=== PATIENT | female | born 1945 | race Caucasian/White ===

== ENCOUNTER 2016-06-26 09:41 | Day surgery (SDC) | payer MEDICARE ==
[2016-06-26] MEDS ORDERED: LIDOCAINE 2% MDV (20MG/ML) 20ML VIAL IV ONE (14:00)
[2016-06-26] MEDS ORDERED: PROPOFOL 10 MG/ML VIAL IV ONE (14:00)
[2016-06-26] MEDS ORDERED: FENTANYL PF 100MCG/2ML VIAL IV ONE (14:00)
--- NOTE | 2016-06-30 15:49 | Operative Note ---
DATE OF SURGERY: 06/26/16 OPERATION: Esophagogastroduodenoscopy with biopsy. REFERRING PHYSICIAN: Alexia Pena M.D. INDICATION: Dysphagia pointing to the lower chest region. Also chronic nausea. The patient presents at this time for further evaluation. She has had a previous Lui fundoplication years ago. ANESTHESIA: Intravenous sedation was administered by the Department of Anesthesiology and included Diprivan titrated to effect. PROCEDURE: Following informed consent from this alert individual, including a discussion of the risks and benefits of the procedure and an opportunity for the patient to ask questions, the patient was in the left lateral decubitus position. The Olympus XMF451 video endoscope was inserted into the esophagus without resistance. The proximal esophagus has a normal appearance with normal folds and distensibility. The mid and distal esophagus, likewise, were free from mucosal changes. However there was a significant amount of what appeared to be esophageal spasm noted in the lower third of the esophagus. The squamocolumnar junction was smooth and well defined. There was a small sliding- type hiatal hernia noted. The stomach was then entered. The gastric fundus and pars media had a normal appearance with normal folds and distensibility. The antrum evaluated circumferentially was free from any mucosal changes. The pylorus was widely patent. The duodenal bulb, sweep, and descending duodenum were examined in a serial fashion and were found to be normal. The endoscope was then withdrawn back into the body of the stomach. Retroflexion was accomplished following air insufflation. The proximal stomach demonstrated a gastric fundal polyps. Biopsies were taken. Also noted was a somewhat displaced fundoplication with a hiatal hernia noted from below. Biopsies of the area of the fundoplication were taken as this seemed somewhat full. After biopsying, the scope was then straightened and withdrawn back through the esophagus and removed from the patient. The patient tolerated the procedure well and was returned to the recovery area in stable condition. IMPRESSIONS: 1. Distal esophageal spasm noted. 2. Small sliding-type hiatal hernia. 3. Status post fundoplication. 4. Gastric fundal polyps; biopsies taken. 5. No gastritis or duodenitis noted. RECOMMENDATIONS: Further recommendations will be forthcoming pending the results of the biopsies obtained today. Follow up will be with Dr. Alexia Pena. BYRON ORTIZ cc: Alexia Pena M.D. Job Number: [id number] MTDD
== END 2016-06-26 11:37 | disposition home or self-care (01) ==
LOC: HOP 09:41
PROVIDERS: ATTEND Internal Medicine Gastroenterology
DX: R13.14 Dysphagia, pharyngoesophageal phase (principal); K31.7 Polyp of stomach and duodenum; K44.9 Diaphragmatic hernia without obstruction or gangrene; I10 Essential (primary) hypertension; Z79.82 Long term (current) use of aspirin; K22.4 Dyskinesia of esophagus
CPT/HCPCS: 88305; 43239; 00740; J3010